=== PATIENT | male | born 1990 | race African-American/Black ===

== ENCOUNTER 2016-09-13 12:50 | Emergency (ER) | payer SELFPAY ==
[~2016-09-13] VITALS: Ht 180.3 cm; Wt 93.0 kg
[2016-09-13 14:20] LABS: Basophils # (auto) 0 uL; Basophils % (auto) 0.6 % (0.0-2.0); CONDITION Y; Eosinophils # (auto) 0.2 uL; Eosinophils % (auto) 2.4 % (0.0-7.0); Hematocrit 44.6 % (41.0-53.0); Hemoglobin 14.9 g/dL (13.5-17.5); Lymphocytes # (auto) 1.7 uL; Lymphocytes % (auto) 26.9 % (10.0-50.0); Mean Corpuscular Hgb Conc. 33.3 g/dL (32.0-36.0); Mean Corpuscular Volume 84.2 fL (80.0-100.0); Mean Platelet Volume 8.4 fL (7.4-10.4); Monocytes # (auto) 0.5 uL; Monocytes % (auto) 8.2 % (0.0-12.0); Neutrophils % (auto) 61.9 % (37.0-80.0); Platelet Count (auto) 222 10^3/uL (140-450); Red Cell Distribution Width 12.9 % (11.6-16.0); White Blood Cell 6.5 10^3/uL (4.4-10.8)
[2016-09-13] MEDS ORDERED: SODIUM CHLORIDE 0.9% 500 ML IVB ONE (14:35)
[2016-09-13] MEDS ORDERED: PANTOPRAZOLE SODIUM 40 MG/10 ML VIAL IV STA (14:35)
[2016-09-13 14:42] LABS: Albumin 4.1 g/dL (3.4-5.0); BUN/Creatinine Ratio 11.1; Bilirubin, Total 0.4 mg/dL (0.2-1.0); Calcium 9.1 mg/dL (8.5-10.1); Potassium 3.9 mmol/L (3.5-5.1); Total Protein 7.7 g/dL (6.4-8.2)
[2016-09-13] MEDS ORDERED: ONDANSETRON HCL 4 MG/2 ML VIAL IV ONE (14:45)
[2016-09-13 17:17] VITALS: BP 114/63
== END 2016-09-13 17:19 | disposition home or self-care (01) ==
LOC: ER 12:50
DX: K29.70 Gastritis, unspecified, without bleeding (principal); F12.10 Cannabis abuse, uncomplicated
CPT/HCPCS: 36415; 76705; 80053; 83690; 83735; 85025; 94761; 96361; 96374; 96375; 99285; C9113; J2405; J7040

== ENCOUNTER 2020-10-06 22:22 | Emergency (ER) | payer MEDICAID, OTHER ==
[~2020-10-06] VITALS: Ht 182.9 cm; Wt 117.9 kg
[2020-10-07] MEDS ORDERED: ACETAMINOPHEN 500 MG TAB PO ONE (01:45)
[2020-10-07 02:32] VITALS: BP 122/60
== END 2020-10-07 01:20 | disposition home or self-care (01) ==
LOC: ER 22:24
DX: L02.412 Cutaneous abscess of left axilla (principal); E66.9 Obesity, unspecified; Z68.35 Body mass index [BMI] 35.0-35.9, adult
CPT/HCPCS: 10060